=== PATIENT | female | born 1990 | race Caucasian/White ===

== ENCOUNTER → 2019-03-30 16:02 | Observation (INO) ==
[2019-03-30 14:50] LABS: Basophils # 0.1 K/mcL (0.0-0.2); Basophils % 0.6 %; Eosinophils # 0.2 K/mcL (0.0-0.6); Eosinophils % 1.9 %; Hematocrit 36.4 % (35.3-44.9); Hemoglobin 11.7 g/dL (11.5-15.4); Immature Granulocytes % 3.5 % (0-4); Lymphocytes # 3.2 K/mcL (0.6-4.6); Lymphocytes % 24.8 %; Mean Corpuscular HGB Conc 32.1 g/dL (31.6-35.5); Mean Corpuscular Hemoglobin 30.3 pg (28.0-33.3); Mean Corpuscular Volume 94.3 fL (83.0-100.0); Mean Platelet Volume 11.8 fL (9.4-12.4); Monocytes # 0.9 K/mcL (0.0-1.3); Monocytes % 6.9 %; Neutrophils # 8.1 K/mcL (1.6-8.9); Nucleated Red Blood Cells 0.2 /100 WBC (0); Platelet Count 198 K/mcL (140-400); Red Blood Count 3.86 M/mcL (3.82-4.97); Segmented Neutrophils % 62.3 %; White Blood Count 12.9 K/mcL (4.3-11.1)
[2019-03-30 14:52] LABS: Bilirubin,Urine Negative (Negative); Blood,Urine Negative (Negative); Clarity,Urine Cloudy (Clear); Color,Urine Yellow (Yellow); Glucose,Urine (UA) Normal (Normal); Ketones,Urine Negative (Negative); Leukocyte Esterase,Urine Small (Negative); Nitrite,Urine Negative (Negative); Protein,Urine Negative (Neg-Trace); Specific Gravity,Urine 1.012 (1.010-1.025); Urobilinogen,Urine Normal (Normal)
[2019-03-30 14:54] LABS: Bacteria,Urine Many per hpf (None-Few); Hyaline Casts,Urine None Seen per lpf (None-Few); Squamous Epithelial Cell,Urine Many per lpf (None-Few)
[2019-03-30 15:17] LABS: Creatinine,Urine 96 mg/dL; Protein/Creatinine Ratio,Urine 0.21 mg/mg (0.00-0.20)
[2019-03-30 15:22] LABS: Alanine Aminotransferase 9 Units/L (7-52); Aspartate Amino Transferase 12 Units/L (13-39); BUN/Creatinine Ratio 10 (6-26); Blood Urea Nitrogen 5 mg/dL (6-20); Lactate Dehydrogenase 147 Units/L (140-271); Uric Acid 4.2 mg/dL (2.3-7.6); eGFR For African Americans > 60 (> 60); eGFR For Non-African Americans > 60 (> 60)
--- NOTE | 2019-03-30 15:54 | Discharge Summary ---
Date of Encounter: 03/30/19 Time of Encounter: 15:53 - Discharge Diagnosis (1) 36 weeks gestation of Priority: Primary Status: Acute Comments: Follow-up with Dr. Mendez as scheduled Labor parameters discussed Discharge home (2) Gestational hypertension affecting third Priority: Secondary Status: Acute Comments: Begin checking blood pressure 2-3 times daily and keep a log Bring log to appointments Signs and symptoms of worsening preeclampsia reviewed and patient verbalizes understanding of when to return to hospital - Discharge Medications Prescriptions: No Action Ferrous Sulfate [Iron] 325 mg PO DAILY Aspirin [[place] Aspirin EC] 81 mg PO DAILY Folic Acid Vit/FA 1 each PO DAILY Home Medications: Vit/FA 1 each PO DAILY 07/01/15 [History] Aspirin [[place] Aspirin EC] 81 mg PO DAILY 03/30/19 [History] Ferrous Sulfate [Iron] 325 mg PO DAILY 03/30/19 [History] Folic Acid 03/30/19 [History] Allergies/Adverse Reactions: Allergy/AdvReac Type Severity Reaction Status Date / Time Amoxicillin [From Augmentin] Allergy Hives Verified 03/30/19 14:17 clavulanic acid Allergy Hives Verified 03/30/19 14:17 [From Augmentin] Data Procedures and tests throughout hospitalization: Laboratory Tests 03/30/19 03/30/19 03/30/19 14:05 14:05 14:26 WBC 12.9 H RBC 3.86 Hgb 11.7 Hct 36.4 MCV 94.3 MCH 30.3 MCHC 32.1 RDW 16.0 H Plt Count 198 MPV 11.8 Immature Gran % 3.5 Seg Neutrophils % 62.3 Lymphocytes % 24.8 Monocytes % 6.9 Eosinophils % 1.9 Basophils % 0.6 Neutrophils # 8.1 Lymphocytes # 3.2 Monocytes # 0.9 Eosinophils # 0.2 Basophils # 0.1 Nucleated RBCs/100 WBC 0.2 H BUN 5 L Creatinine 0.48 L Est GFR ( Amer) > 60 Est GFR (Non-Af Amer) > 60 BUN/Creatinine Ratio 10 Uric Acid 4.2 AST 12 L ALT 9 Lactate Dehydrogenase 147 Urine Color Urine Clarity Urine pH Ur Specific [place] Urine Protein Urine Glucose (UA) Urine Ketones Urine Blood Urine Nitrite Urine Bilirubin Urine Urobilinogen Ur Leukocyte Esterase Urine Microscopic RBC Urine Microscopic WBC Ur Squamous Epith Cells Urine Bacteria Hyaline Casts Ur Culture Indicated? Urine Creatinine 96 Protein/Creatinin Ratio 0.21 H Urine Total Protein 20 H Ur Drug Screen Interp See Below 03/30/19 14:26 WBC RBC Hgb Hct MCV MCH MCHC RDW Plt Count MPV Immature Gran % Seg Neutrophils % Lymphocytes % Monocytes % Eosinophils % Basophils % Neutrophils # Lymphocytes # Monocytes # Eosinophils # Basophils # Nucleated RBCs/100 WBC BUN Creatinine Est GFR ( Amer) Est GFR (Non-Af Amer) BUN/Creatinine Ratio Uric Acid AST ALT Lactate Dehydrogenase Urine Color Yellow Urine Clarity Cloudy A Urine pH 7.0 Ur Specific [place] 1.012 Urine Protein Negative Urine Glucose (UA) Normal Urine Ketones Negative Urine Blood Negative Urine Nitrite Negative Urine Bilirubin Negative Urine Urobilinogen Normal Ur Leukocyte Esterase Small H Urine Microscopic RBC 5-15 H Urine Microscopic WBC 5-15 H Ur Squamous Epith Cells Many H Urine Bacteria Many H Hyaline Casts None Seen Ur Culture Indicated? YES A Urine Creatinine Protein/Creatinin Ratio Urine Total Protein Ur Drug Screen Interp Labs on day of discharge: Labs from last 24 hours 03/30/19 03/30/19 03/30/19 14:26 14:26 14:05 WBC RBC Hgb Hct MCV MCH MCHC RDW Plt Count MPV Immature Gran % Seg Neutrophils % Lymphocytes % Monocytes % Eosinophils % Basophils % Neutrophils # Lymphocytes # Monocytes # Eosinophils # Basophils # Nucleated RBCs/100 WBC BUN 5 L Creatinine 0.48 L Est GFR ( Amer) > 60 Est GFR (Non-Af Amer) > 60 BUN/Creatinine Ratio 10 Uric Acid 4.2 AST 12 L ALT 9 Lactate Dehydrogenase 147 Urine Color Yellow Urine Clarity Cloudy A Urine pH 7.0 Ur Specific [place] 1.012 Urine Protein Negative Urine Glucose (UA) Normal Urine Ketones Negative Urine Blood Negative Urine Nitrite Negative Urine Bilirubin Negative Urine Urobilinogen Normal Ur Leukocyte Esterase Small H Urine Microscopic RBC 5-15 H Urine Microscopic WBC 5-15 H Ur Squamous Epith Cells Many H Urine Bacteria Many H Hyaline Casts None Seen Ur Culture Indicated? YES A Urine Creatinine 96 Protein/Creatinin Ratio 0.21 H Urine Total Protein 20 H Ur Drug Screen Interp See Below 03/30/19 14:05 WBC 12.9 H RBC 3.86 Hgb 11.7 Hct 36.4 MCV 94.3 MCH 30.3 MCHC 32.1 RDW 16.0 H Plt Count 198 MPV 11.8 Immature Gran % 3.5 Seg Neutrophils % 62.3 Lymphocytes % 24.8 Monocytes % 6.9 Eosinophils % 1.9 Basophils % 0.6 Neutrophils # 8.1 Lymphocytes # 3.2 Monocytes # 0.9 Eosinophils # 0.2 Basophils # 0.1 Nucleated RBCs/100 WBC 0.2 H BUN Creatinine Est GFR ( Amer) Est GFR (Non-Af Amer) BUN/Creatinine Ratio Uric Acid AST ALT Lactate Dehydrogenase Urine Color Urine Clarity Urine pH Ur Specific [place] Urine Protein Urine Glucose (UA) Urine Ketones Urine Blood Urine Nitrite Urine Bilirubin Urine Urobilinogen Ur Leukocyte Esterase Urine Microscopic RBC Urine Microscopic WBC Ur Squamous Epith Cells Urine Bacteria Hyaline Casts Ur Culture Indicated? Urine Creatinine Protein/Creatinin Ratio Urine Total Protein Ur Drug Screen Interp Date of admission: 03/30/19 13:31 Primary care physician: PCP NONE Discharging clinician: Rosa Cortez Anticipated date of discharge: 03/30/19 - Patient Status Disposition: Home, Self-Care Condition: Good Functional capacity at discharge: independent ambulation Overall status at discharge: patient is progressing back to baseline - Discharge Instructions Follow Up With: NONE,PCP [Primary Care Provider] - Ambar Mendez MD [Partnered Physician] - - Diet and Activity Activity: increase activity as tolerated Diet: regular diet Hospital Course [employer]OR[employer] Reason for admission: other Discharge diagnosis: other Hospital course: Patient presented from clinic with concern for preeclampsia. She is a 2 with history of preeclampsia 2. She was concerned for decreased movement and right upper quadrant pain that turned out to be more muscular. Her blood pressure is elevated in the office and she also was having protein in her urine. She is currently on a baby aspirin daily. She does have a history of chronic migraines. She was monitored extensively on labor and delivery. All [facility] labs were within normal at this time. Blood pressures were initially elevated but then resolved with rest and medication was not needed. Patient was discharged home with instructions to check blood pressure 3 times a day and bring the log to her appointment next week. Time Attestation: Total time spent providing and/or coordinating discharge services: Time Spent: Less than 30 minutes Exam - Constitutional General appearance IM: A&O X 3, morbidly obese, pleasant, no acute distress, answers questions appropriately - Respiratory Respiratory exam: Present: CTAB - Cardiovascular Cardiovascular exam IM: Present: RRR, +S1, +S2 - GI/Abdominal GI/Abdominal exam IM: normal bowel sounds, no peritoneal signs - Rectal Rectal exam: deferred - Uterine Tone: Firm - Extremities Exam Extremities exam IM: Present: full ROM, normal capillary refill, normal inspection, radial pulses palpable and symmetrical - Neurological Exam Neurological exam: alert, CN II-XII intact, normal gait, oriented X3, reflexes normal, no focal deficits, strengths equal and symetr throughout - VTE Reasons for not Prescribing Prophylaxis: Treatment not Indicated - Low risk for VTE
[2019-03-30 16:12] LABS: Amphetamine Screen,Urine Negative ng/mL (Cutoff=1000); Barbiturate Screen,Urine Negative ng/mL (Cutoff=200); Benzodiazepines Screen,Urine Negative ng/mL (Cutoff=200); Cannabinoid Screen,Urine Negative ng/mL (Cutoff = 50); Cocaine Screen,Urine Negative ng/mL (Cutoff= 300); Opiate Screen,Urine Negative ng/mL (Cutoff=300); Phencyclidine Screen,Urine Negative ng/mL (Cutoff=25)
== END | disposition home or self-care (01) ==
LOC: 1NENULAB
PROVIDERS: ADMIT Advanced Practice Midwife; ATTEND Advanced Practice Midwife

== ENCOUNTER 2019-04-07 19:35 | Inpatient (IN) ==
[2019-04-07 17:46] LABS: Basophils # 0.1 K/mcL (0.0-0.2); Basophils % 0.6 %; Eosinophils # 0.2 K/mcL (0.0-0.6); Eosinophils % 1.4 %; Hematocrit 36.8 % (35.3-44.9); Lymphocytes # 3.4 K/mcL (0.6-4.6); Lymphocytes % 25.1 %; Mean Corpuscular HGB Conc 32.6 g/dL (31.6-35.5); Mean Corpuscular Hemoglobin 30.7 pg (28.0-33.3); Mean Corpuscular Volume 94.1 fL (83.0-100.0); Monocytes # 0.9 K/mcL (0.0-1.3); Monocytes % 6.5 %; Neutrophils # 8.2 K/mcL (1.6-8.9); Nucleated Red Blood Cells 0.1 /100 WBC (0); Platelet Count 185 K/mcL (140-400); Red Blood Count 3.91 M/mcL (3.82-4.97); Red Cell Distribution Width 16.5 % (11.5-14.5); Segmented Neutrophils % 61.4 %; White Blood Count 13.4 K/mcL (4.3-11.1)
[2019-04-07 18:01] LABS: Alanine Aminotransferase 15 Units/L (7-52); Aspartate Amino Transferase 14 Units/L (13-39); BUN/Creatinine Ratio 16 (6-26); Blood Urea Nitrogen 7 mg/dL (6-20); Lactate Dehydrogenase 148 Units/L (140-271); Uric Acid 3.9 mg/dL (2.3-7.6); eGFR For African Americans > 60 (> 60); eGFR For Non-African Americans > 60 (> 60)
[2019-04-07 19:17] LABS: Amphetamine Screen,Urine Negative ng/mL (Cutoff=1000); Barbiturate Screen,Urine Negative ng/mL (Cutoff=200); Benzodiazepines Screen,Urine Negative ng/mL (Cutoff=200); Cannabinoid Screen,Urine Negative ng/mL (Cutoff = 50); Cocaine Screen,Urine Negative ng/mL (Cutoff= 300); Creatinine,Urine 83 mg/dL; Opiate Screen,Urine Negative ng/mL (Cutoff=300); Phencyclidine Screen,Urine Negative ng/mL (Cutoff=25); Protein/Creatinine Ratio,Urine 0.42 mg/mg (0.00-0.20)
[~2019-04-07 19:35] MED LIST: Acetaminophen 325 MG TABLET PO ONE; Famotidine 20 MG/2 ML VIAL IVP PRN; Lidocaine 1% 20 ML MDV INFILT PRN; Metoclopramide 10 MG/2 ML VIAL IVP PRN; Naloxone 0.4 MG/ML INJ IVP PRN; Ondansetron 4 MG/2 ML VIAL IVP PRN
[2019-04-07] MEDS ORDERED: Ringers Solution, Lactated 1,000 ML IVC SCH (19:45)
[2019-04-07] MEDS ORDERED: Famotidine 20 MG/2 ML VIAL IVP ONE (19:46)
--- NOTE | 2019-04-07 19:46 | OB/GYN History & Physical ---
Date of Encounter: 04/07/19 Time of Encounter: 19:41 Assessment and Plan (1) Pre-eclampsia Current visit: Yes Status: Acute Admit for induction of labor at midnight when patient is 37 weeks 0 days Cervidil will be placed at midnight unless there is significant cervical change Continuous electronic monitoring Blood pressures every 4 hours Labs: Add type and screen to existing labs Anticipate POC per consult wtih Dr. Andrew Qualifiers: Trimester: third trimester Qualified Code(s): O14.93 - Unspecified pre- eclampsia, third trimester (2) Intrauterine Current visit: Yes Status: Acute (3) Type A blood, Rh positive Current visit: Yes Status: Acute (4) Intact amniotic membranes during in third trimester Current visit: Yes Status: Acute (5) 36 weeks gestation of Current visit: No Status: Acute History of Present Illness Chief complaint: IOL for Pre-Elampsia HPI: Ms. Simon is a 28 year old female at 36 weeks 6 days gestation an estimated date of of 04/29/19 dated by LMP. She presented from the office for PIH evaluation. She had elevated blood pressures in the office reading 154/86 and 144/92 respectively. Her pressures initially on the unit were within normal range but have slowly increased to severe range. Her urine PC ratio is increased to 0.42 from 0.21 last week. She will be induced at midnight when she is 37 weeks 0 days. She is followed by Dr. Mendez throughout this . records are available electronically and have been reviewed. Her has been thus far uncomplicated until today. Labs: O+ GBS- HIV- Hep B- T. Palladium- GC/CL- Rubella immune Varicella immune Past Med Surg Social Fam HX - Past Medical History Medical history: no medical history Additional medical history: Polycystic ovary disease Psychiatric history: no psych history - Past Surgical History Surgical History: other Additional surgical history: t&a at age 16 - Social History Smoking Status: Never smoker Smokeless Tobacco Status: No Alcohol use: none Drug use: none - Family History Mother Adopted: No Family Member Ethnicity: Non- Living Status: Still Living Hx Family Cardiac Disorders: No Hx Family Respiratory Disorders: No Hx Family Cancer: No Hx Family GI Disorders: No Hx Family Genitourinary Disorders: No Hx Family Endocrine Disorder: No Hx Family Musculoskeletal Disorders: No Hx Family Neuromuscular Disorders: No Hx Family Neurologic Disorders: No Hx Family HEENT Disorders: No Hx Family Autoimmune Disorders: No Hx Family Reproductive Disorders: No Hx Family Psychosocial Disorders: No Hx Family Medical Disorders: No Obstetrical History - Pregnancies : 3 Para: 2 Term: 2 (# 1: 2008, vaginal delivery, 39 weeks, female, 7-4#; pre-eclampsia, induction "tez"; # 2: 9-26-15 FT, normal spontaneous vaginal delivery (),pre-eclampsia,female 7lbs 6oz "Trixie") : 0 Ab's: 0 Livin Medications and Allergies RX: Vit/FA 1 each PO DAILY 07/01/15 [History] Folic Acid 325 mg PO DAILY 03/30/19 [History] RX: Aspirin [[place] Aspirin EC] 81 mg PO DAILY 03/30/19 [History] RX: Ferrous Sulfate [Iron] 325 mg PO DAILY 03/30/19 [History] Allergy/AdvReac Type Severity Reaction Status Date / Time Amoxicillin [From Augmentin] Allergy Hives Verified 03/30/19 14:17 clavulanic acid Allergy Hives Verified 03/30/19 14:17 [From Augmentin] Review of System OB All systems PM: reviewed and no additional remarkable complaints except as stated Exam - Vital Signs Vital signs: Initial Vital Signs Temp Pulse Resp BP Pulse Ox 97.3 F L 100 14 137/86 99 04/07/19 17:42 04/07/19 17:42 04/07/19 17:42 04/07/19 17:42 04/07/19 17:42 - Constitutional Constitutional: well developed, well nourished, no acute distress, morbidly obese - HEENT HEENT: PERRL, Normocephaly, Mucus Membranes Moist - Neck Neck exam: full ROM - Lungs Respiratory exam: CTAB - Cardiovascular Cardiovascular exam: RRR, +S1, +S2 - Breasts Breast: bilateral: normal - Abdomen Abdomen: Present: bowel sounds normal - Extremities Extremities exam: full ROM, normal capillary refill, normal inspection, pedal edema, radial pulses palpable and symmetrical Deep Tendon Reflex Grade: 2+ Normal - Vulva Vulva: bilateral: normal - Vagina Vagina: Present: normal moisture - Cervix Dilation: 1 (per Dr. Mendez) Effacement: 50 Station: -2 - Uterus Uterus exam: Present: normal contour - Adnexa Adnexa: bilateral: normal Results Result Diagrams: 04/07/19 17:25 04/07/19 17:25 Abnormal lab results WBC 13.4 K/mcL (4.3-11.1) H 04/07/19 17:25 RDW 16.5 % (11.5-14.5) H 04/07/19 17:25 Immature Gran % 5.0 % (0-4) H 04/07/19 17:25 Nucleated RBCs/100 WBC 0.1 /100 WBC (0) H 04/07/19 17:25 0.44 mg/dL (0.60-1.20) L 04/07/19 17:25 Protein/Creatinin Ratio 0.42 mg/mg (0.00-0.20) H 04/07/19 17:25 35 mg/dL (1-14) H 04/07/19 17:25 All other labs normal. - VTE Reasons for not Prescribing Prophylaxis: Treatment not Indicated - Low risk for VTE
[2019-04-07] MEDS ORDERED: *HR* Labetalol 20 MG/4 ML SYRINGE IVP ONE ×2 (21:13→21:15)
[2019-04-08] MEDS: *HR* Nalbuphine 10 MG/ML AMPUL IVP PRN ×2 (02:15→12:23)
--- NOTE | 2019-04-08 07:40 | Anesthesia Evaluation PreOp ---
Date of Encounter: 04/08/19 Time of Encounter: 07:38 - Past History Planned Operation: Del, 37wk PIH induction, hx pre-Eclampsia in past Cardiac History: Denies any Significant Hx, HTN (tx with labetolol) Pulmonary History: Denies Any Significant HX [employer] History: Denies Any Significant HX Other Medical History: Other ([place],) Anesthesia History: No Prior Anesthetic Complications, Past Anesthesia (2 previous epidurals hard to get last one, she attributed to her weight,) Alcohol Use: none Drug use: none Medications and Allergies Vit/FA 1 each PO DAILY 07/01/15 [History] Aspirin [[place] Aspirin EC] 81 mg PO DAILY 03/30/19 [History] Ferrous Sulfate [Iron] 325 mg PO DAILY 03/30/19 [History] Folic Acid 325 mg PO DAILY 03/30/19 [History] Allergy/AdvReac Type Severity Reaction Status Date / Time Amoxicillin [From Augmentin] Allergy Hives Verified 03/30/19 14:17 clavulanic acid Allergy Hives Verified 03/30/19 14:17 [From Augmentin] Anesthesia Results - Labs 04/07/19 17:25 04/07/19 17:25 Anesthesia Exam - HEENT Pupil (Motor): Pupils equal Mallampati: III Teeth: Normal Oral Opening: Greater than 3 - [employer] LOC: Oriented [employer] Motor: Normal RUE, Normal LUE, Normal RLE, Normal LLE, Normal Face [employer] Sensory: Normal: RUE, LUE, RLE, LLE, Face - Cardiac Rhythm: Regular Murmur: None - Pulmonary Breath Sounds: bilateral Clear Respiratory Effort: Symmetrical Anesthesia Assess/Plan ASA Score: 3 Level of consciousness: Cooperative, Oriented Anesthetic Plan: General, Spinal, Epidural Monitoring Plan: Standard Monitors Recovery Plan: PACU
[2019-04-08] MEDS ORDERED: Epidural Premix (fent/bupiv) 110 ML EP SCH (07:45)
[2019-04-08] MEDS ORDERED: Epidural Premix (fent/bupiv) 110 ML EP ONE (07:50)
[2019-04-08] MEDS ORDERED: miSOPROStol 25 MCG TABLET PO PRN (10:58)
[2019-04-08] MEDS ORDERED: Oxytocin 20 units/ LR 1000 mL 20 UNIT/1,000 ML BAG IVC SCH (11:00)
--- NOTE | 2019-04-08 11:57 | OB Labor Progress Note ---
Date of Encounter: 04/08/19 Time of Encounter: 11:54 Labor Progress Note - Subjective Subjective: Patient resting without complaint. - Vital Signs Vital Signs: WNL, last BP 137/88 - Cervix Cervix: 2/50/-3 - Heart Tones Heart Tones: FHR 145 bpm, moderate variability, no accels, no decels. - [place]: Irregular, having difficulty tracing contractions. - Interventions Interventions: Cervidil removed SVE Double cervical nichols balloon inserted without difficulty. 60 mL instilled into uterine balloon, 40 mL instilled into vaginal balloon. Patient tolerated with minimal discomfort. - Plan Plan: Recheck cervix in 4 hours unless SROM or is spontaneously expelled. Give po Cytotec at 1230 if ctx not regular. Anticipate
--- NOTE | 2019-04-08 16:32 | OB Labor Progress Note ---
Date of Encounter: 04/08/19 Time of Encounter: 16:30 Labor Progress Note - Subjective Subjective: Patient uncomfortable with contractions. - Vital Signs Vital Signs: WNL, last BP 145/87 - Cervix Cervix: 5/90/-2 - Heart Tones Heart Tones: FHR 140 bpm, moderate variability, +15x15 accels, no decels. - [place]: q2-3 min - Interventions Interventions: Cervical nichols removed. SVE 5/90/-2 station - Plan Physician notified: Yes Physician notified details: Dr. Bonilla aware of SVE Plan: Place epidural AROM after patient is comfortable with epidural. Anticipate
--- NOTE | 2019-04-08 17:43 | Anesthesia Procedures ---
Date of Encounter: 04/08/19 Time of Encounter: 16:48 Procedures: Anesthesia - Epidural/Spinal Patient ID/Chart reviewed: Yes Patient examined: Yes OB Eval: Contractions: Non-stressed pattern Consent Obtained: Yes Supplemental Oxygen: None/Room Air Site Prep: Aseptic Technique, Sterile prep and drape, 0.5% Chlorhexidine/Alcohol Patient position: upright Local Anesthetic: Lidocaine 1% Amount of Local Anesthetic used: 2 Touhy Needle Gauge: 18 Touhy Needle Depth (cm): 8 Catheter Depth at Skin (cm): 14 Test Dose (1.5% Lido + Epi): Volume given (mls): 4 Test Dose Result: Negative Loading Dose: Other: 10ml from solution Loading Dose Administered: Thru Catheter Infusion Med: 0.125% Bupivacaine w/ 2 mcg/ml Fentanyl Infusion Rate (mls/hr): [address]: Tegaderm, Tape Interspace Used: L3-L4 Loss of Resistance (CINDY): Yes (saline ) Blood: No CSF: Yes (25g purposful, no inj) Paresthesia: No Procedure: vss though out, fhr via rn's
--- NOTE | 2019-04-08 18:04 | OB Labor Progress Note ---
Date of Encounter: 04/08/19 Time of Encounter: 18:02 Labor Progress Note - Subjective Subjective: Comfortable with epidural - Vital Signs Vital Signs: WNL, last BP 156/63 - Cervix Cervix: 5/90/-2 - Heart Tones Heart Tones: 150 bpm, moderate variability, +15x15 accels, no decels. - [place]: Irregular, difficult to trace due to positioning - Interventions Interventions: SVE AROM for moderate amount of clear fluid, blood tinged from nichols placement - Plan Physician notified: Yes Physician notified details: Dr. Bonilla aware of AROM and SVE Plan: Begin Pitocin if needed Frequent position changes with peanut ball.
[2019-04-08] MEDS ORDERED: *HR* Ropivacaine/PF 0.2% 20 ML VIAL ONE (22:41)
--- NOTE | 2019-04-09 03:39 | OB Labor Progress Note ---
Date of Encounter: 04/09/19 Time of Encounter: 03:36 Labor Progress Note - Subjective Subjective: Patient resting comfortably with epidural in place. - Vital Signs Vital Signs: WNL - Cervix Cervix: 6/90/-2 with + descent with contractions. - Heart Tones Heart Tones: FHR 145 bpm, minimal-moderate variability, no accels, early decelerations. - [place]: 1-4 minutes - Interventions Interventions: SVE, seems OP position Assisted to Walcher's position - Plan Plan: Continue Pitocin to maintain MVU's >200 Anticipate
--- NOTE | 2019-04-09 06:10 | OB/GYN Procedure Note ---
Delivery - Delivery Date: 04/09/19 Provider: Fartun Gonzalez Delivery induction: nichols, cervidil Delivery augmentation: rupture of membranes, pitocin Delivery monitor: external FHT, internal uterine Anesthesia: epidural Quantitated Blood Loss: 300 - (s) Infant A Delivery Date: 04/09/19 Infant Delivery Time: 05:26 Presentation: vertex Position: OA Route of delivery: Gender: Male Viability: Viable at 1 minute: 8 at 5 mins: 9 Shoulder Dystocia: not encountered Specimens collected: cord blood Placenta: spontaneous - Repair Episiotomy: none Laceration Description: None - Complications Delivery complications: none Delivery comments: Called to room for delivery. Under maternal effort, spontaneous delivery of viable male infant over intact perineum. Infant placed on maternal abdomen for drying and stimulation. Cord clamped and cut after pulsation ceased. Spontaneous delivery of intact placenta, EBL 300 mL. No nuchal cord, shoulder dystocia, or meconium encountered. Mother and infant in kangaroo care for 2 hour recovery. - Disposition Mom disposition: stable in LDR [place] disposition: stable in LDR
[2019-04-09] MEDS ORDERED: Oxytocin 20 units/ LR 1000 mL 20 UNIT/1,000 ML BAG IVC SCH (08:27)
[2019-04-09] MEDS ORDERED: Acetaminophen 325 MG TABLET PO PRN (08:27)
[2019-04-09] MEDS ORDERED: Prenatal Vit/FA 1 EACH TABLET PO SCH (09:00)
[2019-04-09] MEDS: Ibuprofen 600 MG TABLET PO PRN ×2 (12:54→20:15)
[2019-04-10] MEDS: Ibuprofen 600 MG TABLET PO PRN (03:15)
[2019-04-10 08:49] VITALS: BP 98/62
--- NOTE | 2019-04-10 08:55 | Discharge Summary ---
Date of Encounter: 04/10/19 Time of Encounter: 08:52 - Discharge Diagnosis (1) Vaginal delivery Priority: Primary Status: Acute Comments: Patient meeting day one milestones. Pain well-controlled with prescribed medications. Voiding without difficulty, tolerating regular diet, bleeding light. Positive bowel movement yet last evening. Anticipate discharge today (2) Pre-eclampsia Priority: Secondary Status: Acute Comments: BP normal today. Should follow up in one week for BP check in the office. Qualifiers: Trimester: third trimester Qualified Code(s): O14.93 - Unspecified pre- eclampsia, third trimester - Discharge Medications Prescriptions: New Acetaminophen [Tylenol] 650 mg PO Q6HR PRN tablet PRN Reason: Mild Pain Ibuprofen [Motrin] 600 mg PO Q6HR PRN #60 tablet PRN Reason: Cramping Continued Aspirin [[place] Aspirin EC] 81 mg PO DAILY Vit/FA 1 each PO DAILY Discontinued Ferrous Sulfate [Iron] 325 mg PO DAILY Folic Acid 325 mg PO DAILY Home Medications: Vit/FA 1 each PO DAILY 07/01/15 [History] Aspirin [[place] Aspirin EC] 81 mg PO DAILY 03/30/19 [History] Acetaminophen [Tylenol] 650 mg PO Q6HR PRN tablet 04/10/19 [Rx] Ibuprofen [Motrin] 600 mg PO Q6HR PRN #60 tablet 04/10/19 [Rx] Allergies/Adverse Reactions: Allergy/AdvReac Type Severity Reaction Status Date / Time Amoxicillin [From Augmentin] Allergy Hives Verified 03/30/19 14:17 clavulanic acid Allergy Hives Verified 03/30/19 14:17 [From Augmentin] Data Procedures and tests throughout hospitalization: Laboratory Tests 04/07/19 04/07/19 04/07/19 17:25 17:25 17:25 WBC 13.4 H RBC 3.91 Hgb 12.0 Hct 36.8 MCV 94.1 MCH 30.7 MCHC 32.6 RDW 16.5 H Plt Count 185 MPV 12.0 Immature Gran % 5.0 H Seg Neutrophils % 61.4 Lymphocytes % 25.1 Monocytes % 6.5 Eosinophils % 1.4 Basophils % 0.6 Neutrophils # 8.2 Lymphocytes # 3.4 Monocytes # 0.9 Eosinophils # 0.2 Basophils # 0.1 Nucleated RBCs/100 WBC 0.1 H BUN 7 Creatinine 0.44 L Est GFR ( Amer) > 60 Est GFR (Non-Af Amer) > 60 BUN/Creatinine Ratio 16 Uric Acid 3.9 AST 14 ALT 15 Lactate Dehydrogenase 148 Urine Creatinine 83 Protein/Creatinin Ratio 0.42 H Urine Total Protein 35 H Urine Opiates Screen Negative Ur Barbiturates Screen Negative Ur Phencyclidine Scrn Negative Ur Amphetamines Screen Negative U Benzodiazepines Scrn Negative Urine Cocaine Screen Negative U Marijuana (THC) Screen Negative Ur Drug Screen Interp See Below Date of admission: 04/07/19 19:35 Primary care physician: PCP NONE Discharging clinician: Fartun Gonzalez Anticipated date of discharge: 04/10/19 - Patient Status Disposition: Home, Self-Care Condition: Good Functional capacity at discharge: independent ambulation Overall status at discharge: patient is progressing back to baseline - Discharge Instructions Follow Up With: NONE,PCP [Primary Care Provider] - - Diet and Activity Activity: resume usual activities as tolerated Diet: regular diet Hospital Course Reason for admission: induction of labor, pre-eclampsia Delivery: Episiotomy: none Laceration: none Other procedures: none complications: none Discharge diagnosis: IUP at term delivered [place] baby: male Hospital course: Delivery Date: 04/09/19 Provider: Fartun Gonzalez Delivery induction: nichols, cervidil Delivery augmentation: rupture of membranes, pitocin Delivery monitor: external FHT, internal uterine Anesthesia: epidural Quantitated Blood Loss: 300 - (s) Infant A Delivery Date: 04/09/19 Delivery Time: 05:26 Presentation: vertex Position: OA Route of delivery: Gender: Male Viability: Viable at 1 minute: 8 at 5 mins: 9 Shoulder Dystocia: not encountered Specimens collected: cord blood Placenta: spontaneous - Repair Episiotomy: none Laceration Description: None - Complications Delivery complications: none Delivery comments: Called to room for delivery. Under maternal effort, spontaneous delivery of viable male infant over intact perineum. placed on maternal abdomen for drying and stimulation. Cord clamped and cut after pulsation ceased. Spontaneous delivery of intact placenta, EBL 300 mL. No nuchal cord, shoulder dystocia, or meconium encountered. Mother and infant in kangaroo care for 2 hour recovery. - Disposition Mom disposition: stable in LDR [place] disposition: stable in LDR Time Attestation: Total time spent providing and/or coordinating discharge services: Time Spent: Less than 30 minutes Exam - Constitutional Vitals: Temp Pulse Resp BP Pulse Ox 97.3 F L 87 16 98/62 97 04/10/19 07:50 04/10/19 07:50 04/10/19 07:50 04/10/19 07:50 04/10/19 07:50 General appearance IM: A&O X 3, pleasant, no acute distress, answers questions appropriately - Respiratory Respiratory exam: Present: CTAB - Cardiovascular Cardiovascular exam IM: Present: RRR, +S1, +S2 - GI/Abdominal GI/Abdominal exam IM: normal bowel sounds, soft - Rectal Rectal exam: deferred - External exam: normal external exam Uterine Tone: Firm Uterus Position: At Umbilicus, Midline - Extremities Exam Extremities exam IM: Present: full ROM, normal capillary refill, normal inspection - Neurological Exam Neurological exam: alert, normal gait, oriented X3
== END 2019-04-10 12:45 | disposition home or self-care (01) | DRG 807 ==
LOC: 1NENULAB → 1NENUOBS 04-09 08:26
PROVIDERS: ADMIT Advanced Practice Midwife; ATTEND Advanced Practice Midwife